=== PATIENT | male | born 1980 | race Two or more races ===

== ENCOUNTER 2017-12-01 13:32 | Emergency (ER) | payer SELFPAY ==
--- NOTE | 2017-12-01 14:33 | ER Document Report ---
HPI - HPI Patient complains to provider of: cut right hand Onset: Just prior to arrival Onset/Duration: Sudden Pain Level: 0 Context: 37-year-old right-handed male cut his right palm with a carpet knife. Tetanus more than 5 years ago. Past Medical History - General Information source: Patient - Social History Smoking Status: Never Smoker Frequency of alcohol use: None Drug Abuse: None Lives with: Spouse/Significant other Family History: Reviewed & Not Pertinent - Medical History Medical History: Negative Surgical Hx: Negative Vertical Provider Document - CONSTITUTIONAL Agree With Documented VS: Yes Exam Limitations: No Limitations General Appearance: No Apparent Distress - INFECTION CONTROL TRAVEL OUTSIDE OF THE [place] IN LAST 30 DAYS: No - HEENT HEENT: Normocephalic - NECK Neck: Supple - RESPIRATORY O2 Sat by Pulse Oximetry: 98 - NEURO Level of Consciousness: Awake, Alert - DERM Integumentary: Laceration - 3 cm right palm thena aspect to web space between index and thumb. FROM, N/V intact Course - Vital Signs Vital signs: Temp Pulse Resp BP Pulse Ox 98.7 F 75 18 152/87 H 98 12/01/17 13:37 12/01/17 13:37 12/01/17 13:37 12/01/17 13:37 12/01/17 13:37 Procedures - Laceration/Wound Repair Right Hand Time completed: 15:30 Wound length (cm): 3 Wound's Depth, Shape: Irregular Laceration pre-procedure: Other - Surgeon scrubbed, Cailing, Anesthetic type: 1% Lidocaine Volume Anesthetic (mLs): 7 Wound explored: Clean Irrigated w/ Saline (mLs): 100 Wound Repaired With: Sutures Suture Size/Type: 4:0, Prolene Number of Sutures: 5 - Vertical mattress Layer Closure?: No Post-procedure wound care: Sterile dressing applied - bacitracin Post-procedure NV exam normal: No Complications: No Discharge - Discharge Clinical Impression: Right hand laceration repair Condition: Good Disposition: HOME, SELF-CARE Instructions: Antibiotic Ointment Protection ([facility]), Tetanus Immunization Given ([facility]), Laceration Care ([facility]), Anti-Inflammatory Medication ([facility]) Additional Instructions: sutures out in 12 days Keep the dressing on for 2 days then removed continue to keep dry and clean use gloves at work Return for any signs and symptoms of infection which is pus redness pain fever Prescriptions: Ibuprofen [Motrin 800 mg Tablet] 800 mg PO Q8HP PRN #30 tablet PRN Reason: Forms: Return to Work
[2017-12-01] MEDS ORDERED: LIDOCAINE 1% INJ-PF (10 MG/ML) 30 ML SDV INJ ONE (14:34)
[2017-12-01] MEDS ORDERED: DIPH/PERTUSS(ACELL)/TETANUS VAC/PF 0.5 ML SYR (>=10YO) IM ONE (14:34)
[2017-12-01 15:46] VITALS: BP 148/82
== END 2017-12-01 15:45 | disposition home or self-care (01) ==
LOC: ER 13:32
PROC: 0HQFXZZ Repair Right Hand Skin, External Approach (ICD-10-PCS; principal; 2017-12-01)
DX: S61.411A Laceration without foreign body of right hand, initial encounter (principal); W26.0XXA Contact with knife, initial encounter
CPT/HCPCS: 99283; 90471; 90715; 12002; J3490